=== PATIENT | female | born 1960 ===

== ENCOUNTER 2024-11-22 12:38 | Inpatient (IN) | payer OTHER ==
[~2024-11-22] VITALS: Ht 154.9 cm; Wt 59.0 kg
[2024-11-22] MEDS ORDERED: CLARITIN5 MG PO (14:36)
[2024-11-22] MEDS ORDERED: ATORVASTATIN CA10 MG PO (14:36)
[2024-11-22] MEDS ORDERED: FLONASE16 GM (14:36)
[2024-11-27] MEDS ORDERED: LIDOCAINE HCL 1%/EPINEPHRINE 20ML VIAL IJ ONE (08:00)
[2024-11-27] MEDS ORDERED: CEFTRIAXONE SODIUM 2,000 MG VIAL IV ONE (08:00)
[2024-11-27] MEDS ORDERED: BUPIVACAINE HCL 30 ML VIAL IJ ONE (08:00)
[2024-11-27] MEDS ORDERED: METRONIDAZOLE/SODIUM CHLORIDE 500 MG/100 ML PIGGYBACK IV ONE (08:00)
[2024-11-27] MEDS ORDERED: OxyCODONE HCL 5 MG TABLET (ROXICODONE) PO PRN (09:15)
[2024-11-27] MEDS ORDERED: MORPHINE SULFATE 4 MG/ML CARTRIDGE IV PRN (09:15)
[2024-11-27] MEDS ORDERED: ONDANSETRON HCL 2 MG/ML VIAL IV PRN (09:15)
[2024-11-27] MEDS ORDERED: DEXTROSE 50 % IN WATER 0.5 G/ML VIAL IV PRN (09:15)
[2024-11-27] MEDS ORDERED: 0.9 % SODIUM CHLORIDE 1,000 ML IV SCH (09:15)
[2024-11-27] MEDS ORDERED: SUGAMMADEX SODIUM 200 MG/2 ML VIAL IV ONE (09:45)
[2024-11-27 13:16] LABS: BASO % 0.3 % (0.1-1.2); EOS # 0.01 (0.04-0.54); EOS % 0.0 % (0.7-7.0); LYMPH # 0.78 (1.18-3.74); LYMPH % 3.3 % (19.3-53.1); MEAN PLATELET VOLUME 10.60 fl (9.4-12.4); MONO # 0.92 (0.24-0.82); MONO % 3.9 % (4.7-12.5); NEUT # 21.97 (1.56-6.13); NEUT % 92.2 % (34.0-71.1); RED CELL DISTRIBUTION WIDTH 12.9 % (11.6-14.4)
[2024-11-27 14:00] VITALS: BP 121/72; O2SAT 95
[2024-11-27] MEDS ORDERED: ACETAMINOPHEN 500 MG GEL..CAP PO SCH (14:00)
[2024-11-27 15:15] LABS: BUN CREA RATIO 13.0 (7.0-25.0); CREATININE SERUM 0.46 mg/dL (0.55-1.02); GFR 136.76; GLUCOSE FASTING 104.0 mg/dL (65-100); OSMOLALITY SERUM 283.0 MOSM/KG (275-295)
[2024-11-27 16:00] VITALS: BP 137/68; O2SAT 97
[2024-11-27] MEDS ORDERED: METRONIDAZOLE/SODIUM CHLORIDE 500 MG/100 ML PIGGYBACK IV SCH (17:00)
[2024-11-27] MEDS ORDERED: GABAPENTIN 300 MG CAPSULE PO SCH (17:00)
[2024-11-27] MEDS ORDERED: HYOSCYAMINE SULFATE 0.125 MG TAB.SUBL SL SCH (17:00)
[2024-11-27] MEDS ORDERED: CELECOXIB 200 MG CAPSULE PO SCH (21:00)
[2024-11-27] MEDS ORDERED: FAMOTIDINE/PF 20 MG/2 ML VIAL IV PUSH SCH (21:00)
[2024-11-28 01:50] VITALS: BP 111/59; O2SAT 100
[2024-11-28 06:56] LABS: BASO % 0.3 % (0.1-1.2); EOS # 0.05 (0.04-0.54); EOS % 0.3 % (0.7-7.0); LYMPH # 1.87 (1.18-3.74); LYMPH % 12.7 % (19.3-53.1); MEAN PLATELET VOLUME 10.00 fl (9.4-12.4); MONO # 1.30 (0.24-0.82); MONO % 8.8 % (4.7-12.5); NEUT # 11.42 (1.56-6.13); NEUT % 77.6 % (34.0-71.1); RED CELL DISTRIBUTION WIDTH 12.9 % (11.6-14.4)
[2024-11-28 08:00] VITALS: BP 120/70; O2SAT 95
[2024-11-28 08:31] LABS: BUN CREA RATIO 11.0 (7.0-25.0); CREATININE SERUM 0.45 mg/dL (0.55-1.02); GFR 140.27; GLUCOSE FASTING 91.0 mg/dL (65-100); OSMOLALITY SERUM 286.0 MOSM/KG (275-295)
[2024-11-28] MEDS ORDERED: POTASSIUM PHOS,M-BASIC-D-BASIC 3 MM/ML VIAL IV NR (11:00)
[2024-11-28 16:00] VITALS: BP 135/62; O2SAT 96
[2024-11-28] MEDS ORDERED: ENOXAPARIN SODIUM 40 MG/0.4 ML SYRINGE SUBCUTANEO SCH (17:00)
[2024-11-29 00:51] VITALS: BP 113/61; O2SAT 100
[2024-11-29 07:19] LABS: BASO % 0.4 % (0.1-1.2); EOS # 0.23 (0.04-0.54); EOS % 2.0 % (0.7-7.0); LYMPH # 3.00 (1.18-3.74); LYMPH % 25.8 % (19.3-53.1); MEAN PLATELET VOLUME 10.20 fl (9.4-12.4); MONO # 0.83 (0.24-0.82); MONO % 7.1 % (4.7-12.5); NEUT # 7.47 (1.56-6.13); NEUT % 64.4 % (34.0-71.1); RED CELL DISTRIBUTION WIDTH 13.1 % (11.6-14.4)
[2024-11-29 07:58] LABS: BUN CREA RATIO 15.0 (7.0-25.0); CREATININE SERUM 0.34 mg/dL (0.55-1.02); GFR 193.84; GLUCOSE FASTING 81.0 mg/dL (65-100); OSMOLALITY SERUM 289.0 MOSM/KG (275-295)
[2024-11-29] MEDS ORDERED: ENOXAPARIN SODIUM 40 MG/0.4 ML SYRINGE SUBCUTANEO SCH (09:00)
[2024-11-29 10:13] VITALS: BP 143/66; O2SAT 97
[2024-11-29] MEDS ORDERED: POTASSIUM PHOS,M-BASIC-D-BASIC 3 MM/ML VIAL IV NR (10:15)
[2024-11-29] MEDS ORDERED: SODIUM CHLORIDE 0.45 % 1,000 ML IV SCH (10:15)
[2024-11-29 16:00] VITALS: BP 133/59; O2SAT 97
[2024-11-30 01:58] VITALS: BP 112/60; O2SAT 99
[2024-11-30 08:00] VITALS: BP 126/74; O2SAT 94
[2024-11-30] MEDS ORDERED: TRAM1TAB98 PO (11:32)
[2024-11-30] MEDS ORDERED: PEPCID AC20 MG PO (11:32)
[2024-11-30] MEDS ORDERED: HYOSCYAMINE0.125 M1 SL (11:32)
== END 2024-11-30 14:58 | disposition home or self-care (01) | DRG 331 ==
LOC: O/R 11-27 05:30 → SURH 11-27 12:45
PROVIDERS: Internal Medicine Geriatric Medicine; ADMIT Surgery; ATTEND Surgery
PROC: 07BB4ZZ Excision of Mesenteric Lymphatic, Percutaneous Endoscopic Approach (ICD-10-PCS; 2024-11-27)
PROC: 0DTF4ZZ Resection of Right Large Intestine, Percutaneous Endoscopic Approach (ICD-10-PCS; principal; 2024-11-27 13:30)
DX: D12.2 Benign neoplasm of ascending colon (principal); D37.4 Neoplasm of uncertain behavior of colon; K62.82 Dysplasia of anus; R59.0 Localized enlarged lymph nodes; E78.5 Hyperlipidemia, unspecified; K63.89 Other specified diseases of intestine; J30.9 Allergic rhinitis, unspecified; I10 Essential (primary) hypertension; R73.01 Impaired fasting glucose